=== PATIENT | female | born 1965 | race Caucasian/White ===

== ENCOUNTER 2022-04-14 17:19 | Emergency (ER) | payer OTHER, MEDICAID ==
[~2022-04-14] VITALS: Ht 167.6 cm; Wt 77.1 kg
== END 2022-04-14 18:07 | disposition home or self-care (01) ==
LOC: ED 17:19
DX: S01.81XA Laceration without foreign body of other part of head, initial encounter (principal); W19.XXXA Unspecified fall, initial encounter
CPT/HCPCS: 99282

== ENCOUNTER 2025-07-27 03:06 | Emergency (ER) | payer OTHER | END 2025-07-27 05:34 | disposition home or self-care (01) | LOC: ED 03:06 | DX: G47.00 Insomnia, unspecified (principal); F31.2 Bipolar disorder, current episode manic severe with psychotic features ==